=== PATIENT | male | born 1995 | race Two or more races ===

== ENCOUNTER 2016-10-27 18:58 | Emergency (ER) | payer OTHER ==
[2016-10-27] MEDS ORDERED: PROPARACAINE HCL 0.5% 300 GTTS/BOT SOLN.DROP ONE (20:12)
[2016-10-27] MEDS ORDERED: KETOROLAC TROMETHAMINE 15 MG/ML VIAL ONE (21:44)
== END 2016-10-27 22:32 | disposition home or self-care (01) ==
LOC: ED 18:58
DX: H57.12 Ocular pain, left eye (principal); R51 Headache; Z98.890 Other specified postprocedural states
CPT/HCPCS: 99283 ×2; 96372; A9270; J1885